=== PATIENT | female | born 1960 | race Caucasian/White ===

== ENCOUNTER 2017-08-05 11:47 | Emergency (ER) | payer BC ==
[2017-08-05 12:09] VITALS: TEMP 99.4
[2017-08-05 12:44] LABS: Appearance,Urine Cloudy (Clear); Bacteria,Urine Many /hpf; Bilirubin,Urine Negative (Negative); Glucose,Urine (UA) Negative (Negative); Ketones,Urine Negative (Negative); Leukocyte Esterase,Urine Negative (Negative); Mucus,Urine Rare /hpf; Nitrite,Urine Negative (Negative); Particle Count 6073; Protein,Urine Trace (Negative); RBC,Urine 108 /hpf (0-5); Specific Gravity,Urine 1.013 (1.001-1.035); Squamous Epithelial Cell,Urine 2 /hpf (0-4); UA Billing (MACRO vs. MICRO) MICRO; Urobilinogen,Urine <2.0 mg/dL (<2.0); WBC,Urine 5 /hpf (0-5)
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
[2017-08-05 14:56] LABS: Basophils # (A) 0.1 k/uL (0-0.2); Basophils % (A) 1 %; CH 33.7; CHCM 36.9; Eosinophils # (A) 0.3 k/uL (0-0.7); Eosinophils % (A) 4 %; HCT 43.1 % (34.0-46.0); HDW 2.95; HGB 15.3 gm/dL (11.4-16.0); Luc # (Auto) 0.07; Luc % (Auto) 1; Lymphocytes # (A) 2.6 k/uL (1.0-4.8); Lymphocytes % (A) 29 %; MCH 32.5 pg (25.0-35.0); MCHC 35.5 g/dL (31.0-37.0); MCV 91.7 fL (80.0-100.0); Mean Platelet Volume 6.5; Monocytes # (A) 0.5 k/uL (0-1.0); Monocytes % (A) 5 %; Neutrophils # (A) 5.3 k/uL (1.3-7.7); Neutrophils % (A) 60 %; RDW 12.4 % (11.5-15.5); WBC 8.8 k/uL (3.8-10.6); WBC (Perox) 8.55
[2017-08-05 15:06] LABS: ALT 77 U/L (9-52); AST 86 U/L (14-36); Alkaline Phosphatase 80 U/L (38-126); Anion Gap 11 mmol/L; Blood Urea Nitrogen 11 mg/dL (7-17); Calcium 9.4 mg/dL (8.4-10.2); Carbon Dioxide 24 mmol/L (22-30); Chloride 104 mmol/L (98-107); Glucose 201 mg/dL (74-99); Non-African American GFR(MDRD) >60 (>60 ml/min/1.73 sqM); Potassium 4.1 mmol/L (3.5-5.1); Sodium 139 mmol/L (137-145); Total Bilirubin 0.8 mg/dL (0.2-1.3); Total Protein 7.3 g/dL (6.3-8.2)
--- NOTE | 2017-08-05 15:20 | XR ---
EXAMINATION TYPE: XR abdomen 2V DATE OF EXAM: 08/05/2017 3:06 PM COMPARISON: None CLINICAL HISTORY: Left flank pain with hematuria. TECHNIQUE: Single supine KUB image of the abdomen is obtained. COMPARISON: None. FINDINGS: No definite free intraperitoneal air is identified. Nonspecific bowel gas pattern is identi fied. There is a moderate amount stool noted in the colon. There is no evidence of impaction or obstr uction. There is a lamellated gallstone overlying the expected location of the gallbladder. Osseous s tructures appear unremarkable. IMPRESSION: Cholelithiasis.
[2017-08-05 16:06] VITALS: RESP 16
--- NOTE | 2017-08-05 16:12 | CT ---
EXAMINATION TYPE: CT abdomen pelvis wo con DATE OF EXAM: 08/05/2017 COMPARISON: NONE HISTORY: Gross hematuria, back pain, worse on left. CT DLP: 1151.9 mGycm Automated exposure control for dose reduction was used. TECHNIQUE: Helical acquisition of images was performed from the lung bases through the pelvis. FINDINGS: LUNG BASES: No significant abnormality is appreciated. LIVER/GB: The liver is diffusely hypodense most consistent with hepatic steatosis. There is a lamella enrique gallstone noted in the gallbladder which is collapsed. PANCREAS: No significant abnormality is seen. SPLEEN: No significant abnormality is seen. ADRENALS: No significant abnormality is seen. KIDNEYS: No hydronephrosis is identified. There is no evidence of nephrolithiasis identified. On this noncontrast examination the appearance of the kidneys is unremarkable. FREE AIR: No free air is visualized RETROPERITONEAL ADENOPATHY: None visualized REPRODUCTIVE ORGANS: No significant abnormality is seen. No definite uterus is identified although an atrophic uterus may be present. URINARY BLADDER: No significant abnormality is seen. PELVIC ADENOPATHY: None visualized. OSSEOUS STRUCTURES: No significant abnormality is seen. BOWEL: No significant abnormality is seen. The appendix is visualized, and is normal. IMPRESSION: 1. NO EVIDENCE OF NEPHROLITHIASIS. 2. CHOLELITHIASIS. 3. HYPODENSE LIVER MOST LIKELY DUE TO HEPATIC STEATOSIS.
[2017-08-05] MEDS ORDERED: LEVOFLOXACIN 500 MG TAB PO STA (17:03)
[2017-08-05 17:47] VITALS: BP 138/91; PULSE 80
== END 2017-08-05 17:55 | disposition home or self-care (01) ==
LOC: EC 11:47
DX: N39.0 Urinary tract infection, site not specified (principal); Z90.710 Acquired absence of both cervix and uterus; Z87.891 Personal history of nicotine dependence; Z88.5 Allergy status to narcotic agent
CPT/HCPCS: 36415; 74020; 74176; 80053; 81001; 85025; 87086; 99284

== ENCOUNTER → 2017-08-20 | Outpatient (CLI) | payer BC ==
--- NOTE | 2017-08-21 08:24 | CT ---
EXAMINATION TYPE: CT urogram wo/w con DATE OF EXAM: 08/20/2017 HISTORY: Patient complains of gross hematuria and urinary urgency and frequency. CT DLP: 4632mGycm Automated Exposure Control for Dose Reduction was Utilized. CONTRAST: CT scan of the abdomen and pelvis is performed without and with IV Contrast, patient injected with 10 0 mL of Omnipaque 300. COMPARISON: None. FINDINGS: LUNG BASES: No significant abnormality is appreciated. LIVER/GB: The liver is diffusely hypoattenuated compatible with at least moderate hepatic steatosis a s this measures an average Hounsfield unit of 17.8. This limits evaluation for underlying hepatic mas ses. No biliary ductal dilatation. A possible peripherally enhancing ill-defined 1.0 cm hepatic lesio n versus pseudolesion is seen on series 6 image 23, sagittal series 5 image 108, and coronal series 4 image 45 megaly that is rounded in morphology and could relate to true hepatic lesion, focal fatty s paring, or arterial portal shunt. This is incompletely characterized. Additionally there is mild foca l fatty sparing around the gallbladder fossa. Large lamellated gallstone is seen within the gallbladder neck measuring 2.3 cm. Common bile duct is not enlarged measuring 6 mm and there is no right upper quadrant fat stranding or pericholecystic flu id. PANCREAS: Pancreas enhances homogeneously without ductal dilatation. SPLEEN: No significant abnormality is seen. Spleen is within normal limits of size measuring 11.8 cm in craniocaudal dimension. ADRENALS: No significant abnormality is seen. KIDNEYS: Emanating from the lateral posterior aspect of the right superior pole there is a 1.3 cm cys t measuring fluid attenuation on all sequences. Additional smaller nonenhancing approximately [address] is present of the lateral cortex of the superior pole of the right kidney. The kidneys enhance and excrete otherwise symmetrically with no blunting of the calyces, hydronephros is, uroepithelial thickening, or ureter deviation in course. Urinary bladder fills dependently partia lly without focal urinary bladder wall thickening. BOWEL: Duodenal diverticulum projects posterior to the uncinate process containing inspissated debris and air without wall thickening. PROSTATE GLAND: Prostate gland is enlarged measuring 5.9 cm. LYMPH NODES: No greater than 1cm abdominal or pelvic lymph nodes are appreciated. OSSEOUS STRUCTURES: No suspicious abnormality. Mild multilevel degenerative changes of the thoracolum bar spine are present. OTHER: Small fat filled periumbilical hernia with a 9 mm neck is superimposed upon mild diastases rec ti. Abdominal aorta is of normal course and caliber with minimal calcific atheromatous changes. IMPRESSION: 1. Right renal cysts. No uroepithelial thickening, ureteral deviation, hydronephrosis, calyceal blunt ing, or urinary bladder focal thickening. Direct visualization of the urinary bladder could be perfor med if there is persistent gross hematuria. 2. At least moderate diffuse hepatic steatosis with areas of focal fatty sparing and left hepatic lob e 1.0 cm lesion versus pseudolesion secondary to hepatic steatosis. Dynamic enhanced MRI abdomen coul d be performed for further evaluation. 3. Cholelithiasis. 4. Incidental duodenal diverticulum containing inspissated debris without wall thickening or surround ing fat stranding. 5. Heterogenous and enlarged prostate gland.
== END | disposition home or self-care (01) ==
LOC: RADCTMAIN 13:47
PROVIDERS: ATTEND Urology
DX: N28.1 Cyst of kidney, acquired (principal); K76.0 Fatty (change of) liver, not elsewhere classified; K80.20 Calculus of gallbladder without cholecystitis without obstruction; K57.90 Diverticulosis of intestine, part unspecified, without perforation or abscess without bleeding; Z88.5 Allergy status to narcotic agent
CPT/HCPCS: 74178; 74400; Q9967

== ENCOUNTER 2017-09-19 11:07 | Day surgery (SDC) | payer BC ==
[2017-09-17 14:26] VITALS: BMI 33.5
[~2017-09-19 11:07] MED LIST: DEXAMETHASONE SOD PHOSPHATE 10 MG/ML 1 ML VIAL IV ONE; HEPARIN SODIUM,PORCINE 5,000 UNIT/ML 1 ML VIAL SQ ONE; MIDAZOLAM 2 MG/2 ML VIAL IV PRN; ONDANSETRON 4 MG/2 ML VIAL IVP ONE; ceFAZolin IN SWFI 2 GM/20 ML SYRINGE IVP ONE
[2017-09-19 11:58] LABS: Glucose,Whole Blood 88 mg/dL (75-99)
[2017-09-19] MEDS: LACTATED RINGERS 1,000 ML IV SCH ×2 (12:00→12:11)
[2017-09-19] MEDS ORDERED: LIDOCAINE 1% 20 ML VIAL (10MG/ML) FOR IV START INTRADERMA ONE (12:01)
[2017-09-19] MEDS ORDERED: LIDOCAINE 1% INJ 10MG/ML (20 ML MDV) ONE (12:11)
[2017-09-19] MEDS ORDERED: MIDAZOLAM 2 MG/2 ML VIAL ONE (12:11)
[2017-09-19] MEDS ORDERED: SUCCINYLCHOLINE CHLORIDE 100 MG/5 ML SYR IV ONE (12:11)
[2017-09-19] MEDS ORDERED: ROCURONIUM BROMIDE 10 MG/ML 10 ML VIAL IV ONE (12:11)
[2017-09-19] MEDS ORDERED: GLYCOPYRROLATE 0.2 MG/ML 2 ML VIAL ONE (12:11)
[2017-09-19] MEDS ORDERED: fentaNYL (PF) 50 MCG/ML 2 ML AMP ONE (12:11)
[2017-09-19] MEDS ORDERED: NEOSTIGMINE 1 MG/ML 10 ML VIAL ONE (12:11)
[2017-09-19] MEDS ORDERED: PROPOFOL 10 MG/ML 20 ML VIAL IV ONE (12:11)
[2017-09-19] MEDS ORDERED: BUPIVACAINE (PF) 0.25% 30 ML VIAL SQ ONE (12:26)
[2017-09-19 13:30] VITALS: TEMP 97
[2017-09-19 13:32] VITALS: RESP 16
[2017-09-19] MEDS: HYDROmorphone 0.5 MG/0.5 ML SYRINGE IVP PRN ×2 (13:53→13:58)
[2017-09-19] MEDS ORDERED: LACTATED RINGERS 1,000 ML IV ONE (14:16)
[2017-09-19] MEDS ORDERED: HYDROcodone/APAP 5-325MG 1 EACH TAB PO ONE (14:51)
[2017-09-19 15:38] VITALS: BP 148/84; PULSE 84
--- NOTE | 2017-09-26 09:33 | P.OP ---
Date of Procedure: 09/19/17 Preoperative Diagnosis: Symptomatic cholelithiasis Postoperative Diagnosis: Same Procedure(s) Performed: Laparoscopic cholecystectomy Anesthesia: DARCI Surgeon: Shira Bernard Pathology: other Condition: stable Disposition: PACU Indications for Procedure: 57 years old female presents with symptomatic cholelithiasis. Informed consent obtained and she elected to undergo colonoscopy cholecystectomy possible open. Description of Procedure: The patient was brought to the operating room and placed in supine position with both arms out. General anesthesia with endotracheal intubation was performed as per anesthesia team. Chlorhexidine was used to prep the abdomen followed by application of sterile drapes. A timeout was performed to verify correct patient and correct procedure. Patient was confirmed to receive perioperative IV antibiotics , heparin 5000 units subcutaneous injection and bilateral SCDs were placed. A 5 mm skin incision was made below the left costal margin at the anterior axillary line. A Veress needle was inserted and pneumoperitoneum was established to a pressure of 15 mmHg. A 5 mm Optiview trocar was loaded on a 5 mm 30 laparoscope and the peritoneal cavity was entered under direct vision using the Optiview technique. Additional 5 mm trocar was placed in the supraumbilical location and two 5 mm trocars along the right subcostal margin. The left 5 mm trocar was upsized to 10mm. The patient was placed in reverse Trendelenburg with right side up. The fundus of the gallbladder was grasped with an atraumatic grasper and was retracted over the dome of the liver. The infundibulum was grasped with an atraumatic grasper and retracted towards the pelvis to expose the Calot's triangle. Lateral and medial peritoneal attachment of the gallbladder bladder was dissected. Circumferential dissection was carried out around the cystic artery and the cystic duct to obtain adequate length for clip application. All the surrounding fibrofatty tissue were removed. Critical view was obtained with cystic duct and cystic artery as the only two structures entering the gallbladder. Two clips were applied on the patient's side and one on the specimen side on the cystic duct first followed by the cystic artery. Endoshears were used to divide the cystic duct and the cystic artery. The gallbladder was taken off the liver bed using a L-hook. It was placed in an endocatch specimen bag and removed through the 10mm port. The gallbladder was passed off as a specimen. The abdominal cavity was inspected. The clips on the cystic duct and cystic artery stump were intact and no bleeding noted from the liver bed. All the trocar sites were examined and no evidence of bleeding. The 10mm port site was closed with two transfascial sutures of 0 Vicryl using a Gino Shae device. The pneumoperitoneum was evacuated and all the trocars were removed. Local anesthetic was infiltrated along the trocar sites and incisions were closed using 4-0 Monocryl followed by application of Dermabond skin glue. The sponge, instrument and needle count were correct x2. Patient was extubated and taken to post anesthesia care unit in stable condition.
== END 2017-09-19 16:11 | disposition home or self-care (01) ==
LOC: OR 11:07
PROVIDERS: ATTEND Surgery
DX: K80.12 Calculus of gallbladder with acute and chronic cholecystitis without obstruction (principal); E66.9 Obesity, unspecified; Z68.35 Body mass index [BMI] 35.0-35.9, adult; Z88.5 Allergy status to narcotic agent; Z87.891 Personal history of nicotine dependence; Z90.710 Acquired absence of both cervix and uterus
CPT/HCPCS: 47562; 88304; J2250; J1644; J1100; J2710; J0690; J2405; J2001; J3010; J0330; J2704; J1170

== ENCOUNTER → 2021-03-02 | Outpatient (CLI) | payer BC ==
[2021-03-03 00:07] LABS: Estradiol 43.2 pg/mL
== END | disposition home or self-care (01) ==
LOC: LABWHC1 12:30
PROVIDERS: ATTEND Obstetrics & Gynecology
DX: N95.1 Menopausal and female climacteric states (principal); Z79.890 Hormone replacement therapy
CPT/HCPCS: 36415; 82670; 84144; 84403; 84443

== ENCOUNTER → 2024-03-12 | Outpatient (CLI) | payer BC ==
--- NOTE | 2024-03-13 07:41 | XR ---
EXAMINATION TYPE: XR shoulder complete RT DATE OF EXAM: 03/12/2024 COMPARISON: NONE HISTORY: Pain TECHNIQUE: Three views are submitted. FINDINGS: The osseous structures are intact. There is no acute fracture or dislocation. Moderate to severe hyp ertrophic arthropathy seen. IMPRESSION: 1. Moderate to severe AC joint hypertrophic arthropathy.
== END | disposition home or self-care (01) ==
LOC: RADXRMAIN 16:23
PROVIDERS: ATTEND Physician Assistant
DX: M19.011 Primary osteoarthritis, right shoulder (principal)

== ENCOUNTER → 2024-06-23 | Outpatient (CLI) | payer BC ==
--- NOTE | 2024-06-24 14:35 | MR ---
EXAMINATION TYPE: MR shoulder RT wo con DATE OF EXAM: 06/23/2024 1:30 PM COMPARISON: NONE HISTORY: Rt shoulder pain TECHNIQUE: Multiplanar multispin echo imaging of the right shoulder was performed. FINDINGS: Rotator cuff : There is a full thickness partial tear of the supraspinatus tendon without evidence fo r retraction. Abnormal signal seen within the critical zone. Remaining constituents of the rotator cu ff are intact. Bursa: No bursal effusion or thickening is seen. Musculature: There is no muscular tear, contusion, or atrophy. Acromioclavicular joint : Subacromial spurring resulting in moderate subacromial impingement. Moderat e AC joint arthropathy. Osseous structures : There are no fractures or regions of abnormal bone marrow signal intensity. Long biceps tendon : The biceps tendon is normally situated within the bicipital groove. No complete or partial biceps tendon tear is present. Glenohumeral Joint fluid : There is no glenohumeral joint effusion. Cartilage and Bone : No focal hyaline cartilage defects are noted. No Hill-Sachs, reverse Hill-Sachs, or bony Bankart lesions are seen. Labrum : There are no SLAP or soft tissue Bankart lesions. No paralabral cysts are seen. OTHER FINDINGS : none IMPRESSION: 1. There is a full thickness partial tear of the supraspinatus tendon without evidence for retraction . Abnormal signal seen within the critical zone.
== END | disposition home or self-care (01) ==
LOC: RADMRIMAIN 12:43
PROVIDERS: ATTEND Family Medicine
DX: M89.411 Other hypertrophic osteoarthropathy, right shoulder (principal); M75.121 Complete rotator cuff tear or rupture of right shoulder, not specified as traumatic

== ENCOUNTER → 2024-07-21 | Outpatient (CLI) | payer BC ==
[2024-07-21 15:44] LABS: Anion Gap 11.9 mmol/L (4.00-12.00); Carbon Dioxide 23.1 mmol/L (21.6-31.8); Potassium 4.4 mmol/L (3.5-5.5)
[2024-07-21 16:12] LABS: Basophils # (A) 0.06 X 10*3/uL (0.00-0.10); Basophils % (A) 0.8 %; Eosinophils # (A) 0.15 X 10*3/uL (0.04-0.35); Eosinophils % (A) 1.9 %; HCT 42.4 % (37.2-46.3); HGB 15.1 g/dL (12.0-15.0); Lymphocytes # (A) 2.48 X 10*3/uL (0.90-5.00); Lymphocytes % (A) 31.2 %; MCH 32.3 pg (27.0-32.0); MCHC 35.6 g/dL (32.0-37.0); MCV 90.8 FL (80.0-97.0); Mean Platelet Volume 9.5 FL (9.5-12.2); Monocytes # (A) 0.71 X 10*3/uL (0.20-1.00); Monocytes % (A) 8.9 %; NRBC Per 100 WBC 0 X 10*3/uL (0.00-0.01); Neutrophils # (A) 4.53 X 10*3/uL (1.80-7.70); Neutrophils % (A) 56.9 %; Platelet Count 243 X 10*3/uL (140-440); RBC 4.67 X 10*6/uL (4.10-5.20); RDW 12.5 % (11.5-14.5); WBC 7.95 X 10*3/uL (4.50-10.00)
== END | disposition home or self-care (01) ==
LOC: LABPAT 12:13
PROVIDERS: ATTEND Orthopaedic Surgery
DX: Z01.812 Encounter for preprocedural laboratory examination (principal); M75.41 Impingement syndrome of right shoulder
CPT/HCPCS: 80051; 85025

== ENCOUNTER 2024-07-31 07:53 | Day surgery (SDC) | payer BC ==
[2024-07-28 10:07] VITALS: BMI 32.5
--- NOTE | 2024-07-31 00:28 | HP ---
HISTORY AND PHYSICAL DATE OF SURGERY: 07/31/2024. HISTORY OF PRESENT ILLNESS: Lizzy Cuellar is a 64-year-old patient, seen with progressive right shoulder pain. We discussed options regarding treatment. She elected to proceed with right shoulder arthroscopy. Consent was obtained. PAST MEDICAL HISTORY: [id number] diabetes. PAST SURGICAL HISTORY: section, cholecystectomy. DAILY MEDICATIONS: 1. Celebrex. 2. Ozempic. ALLERGIES: None. SOCIAL HISTORY: She denies tobacco use. PHYSICAL EVALUATION OF THE RIGHT SHOULDER: Flexion is 150 degrees, abduction is 130 degrees. External rotation is 40 degrees with pain and weakness. Tenderness along the anterolateral acromion and bicipital groove along with rotator cuff and proximal biceps tendon. Impingement is positive at 70 degrees. Cross-body adduction sign is positive. Drop-arm sign is positive. Distal neurovascular exam is intact. IMAGING STUDIES: Radiographs of right shoulder, type 2 acromion, severe acromioclavicular joint osteoarthritis. MRI of right shoulder, rotator cuff tear, impingement, acromioclavicular joint osteoarthritis. IMPRESSION: 1. Right shoulder impingement with rotator cuff tear. 2. Right shoulder acromioclavicular joint osteoarthritis. 3. Right shoulder bicipital tendinitis. 4. [id number] diabetes. PLAN: Right shoulder arthroscopy with subacromial decompression, arthroscopic rotator cuff repair, Gabe, biceps tenodesis, and debridement. MMODL / IJN: [id number] /
[~2024-07-31 07:53] MED LIST changes: -DEXAMETHASONE SOD PHOSPHATE 10 MG/ML 1 ML VIAL IV ONE; -HEPARIN SODIUM,PORCINE 5,000 UNIT/ML 1 ML VIAL SQ ONE; +HYDROmorphone 0.5 MG/0.5 ML SYRINGE IVP PRN; -MIDAZOLAM 2 MG/2 ML VIAL IV PRN; -ONDANSETRON 4 MG/2 ML VIAL IVP ONE; -ceFAZolin IN SWFI 2 GM/20 ML SYRINGE IVP ONE
[2024-07-31] MEDS: IV FLUID CONTINUATION 1,000 ML IV ONE (08:14)
[2024-07-31 08:25] LABS: Glucose,Whole Blood 111 mg/dL (70-110)
[2024-07-31] MEDS: DEXAMETHASONE SOD PHOSPHATE 4 MG/ML 1 ML VIAL IV ONE (08:32)
[2024-07-31] MEDS: ONDANSETRON 4 MG/2 ML VIAL IVP ONE (08:32)
[2024-07-31] MEDS: LACTATED RINGERS 1,000 ML IV SCH (08:32)
[2024-07-31] MEDS: MIDAZOLAM 2 MG/2 ML VIAL IV ONE (08:58)
[2024-07-31] MEDS ORDERED: fentaNYL (PF) 50 MCG/ML 2 ML AMP ONE (09:01)
[2024-07-31] MEDS ORDERED: SUCCINYLCHOLINE CHLORIDE 200 MG/10 ML VIAL IV ONE (09:01)
[2024-07-31] MEDS ORDERED: LIDOCAINE 4% LTA KIT (4 ML) TOPICAL ONE (09:01)
[2024-07-31] MEDS ORDERED: PROPOFOL 10 MG/ML 20 ML VIAL IV ONE (09:01)
[2024-07-31] MEDS ORDERED: DEXAMETHASONE SOD PHOSPHATE 4 MG/ML 1 ML VIAL ONE (09:01)
[2024-07-31] MEDS ORDERED: ROPIVACAINE 5 MG/ML 30 ML VIAL ONE (09:01)
[2024-07-31] MEDS ORDERED: LIDOCAINE 1% INJ 10MG/ML (20 ML MDV) ONE (09:01)
[2024-07-31] MEDS ORDERED: KETOROLAC 15 MG/ML 1 ML VIAL ONE (09:01)
[2024-07-31 11:00] VITALS: TEMP 97.4
--- NOTE | 2024-07-31 11:04 | P.OP ---
Date of Procedure: 07/31/24 Preoperative Diagnosis: Right shoulder impingement Postoperative Diagnosis: 1. Right shoulder rotator cuff tear 2. Right shoulder impingement 3. Right shoulder partial long head biceps tendon tear 4. Right shoulder acromioclavicular joint osteoarthritis 5. Right shoulder superficial labral tear Procedure(s) Performed: 1. Right shoulder arthroscopic rotator cuff repair 2. Right shoulder arthroscopic subacromial decompression 3. Right shoulder arthroscopic biceps tenodesis 4. Right shoulder arthroscopic Gabe procedure 5. Right shoulder arthroscopic debridement labral tear Implants: 5Arthrex 4.75 swivel lock anchors Anesthesia: GETA, regional (Interscalene block) Surgeon: Ellis Lundy Pegger Dobby Looms #1: Srinath Dietrich Estimated Blood Loss (ml): 10 Pathology: none sent Condition: stable Disposition: PACU Indications for Procedure: 64-year-old patient seen with progressive right shoulder pain. After having treatment options discussed, she elected to proceed with arthroscopy. Operative Findings: See description of procedure Description of Procedure: Patient underwent an interscalene block by department of anesthesia. The patient was then taken to the operative suite. The patient underwent a general anesthetic by the department of anesthesia. The patient was placed into a lateral position and secured. There was appropriate padding of the bony prominence. Right shoulder was then prepped and draped in normal sterile orthopedic fashion. We placed the extremity in 10 pounds of longitudinal traction. A posterior incision was now made for a posterior working portal site. The trocar and cannula were inserted into the glenohumeral joint. Arthroscopy was initiated. Spinal needle was now inserted anteriorly, to ascertain the anterior working portal site. An incision was now made in that area, a trocar was inserted followed by a probe. There was partial tearing and hyperemia long head biceps tendon. There was superficial tearing of the superior labrum. There was no significant chondromalacia present. I debrided the superficial labral tear with a motorized shaver. I decided to proceed with an arthroscopic biceps tenodesis. I placed a cannula through the anterior portal site. I passed a loop and tack type stitch to the biceps tendon and release it from the superior labral anchor. With the assistance of Blayne HOWELL I punched a hole at the interval area for insertion of an anchor. The suture line was passed through the eyelet of an Arthrex 4.75 swivel lock anchor. I placed the eyelet into our prepunched hole, held in position while Blayne HOWELL tensioned the suture and deployed the anchor with good fixation noted. The residual suture limb was clipped. There was a stable appearing biceps tenodesis. Instruments were now removed from glenohumeral joint. Utilizing the posterior working portal site, the trocar and cannula were inserted into the subacromial space. Arthroscopy initiated. I made an incision 2 fingerbreadths lateral to the acromion. I introduced my trocar followed by my ArthroCare ablator. I now began ablating thick subacromial bursal tissue, which exposed the undersurface of the anterior acromion. There was diminished subacromial space. There was a very prominent anterior acromion. A motorized bur was introduced and a subacromial decompression was performed. I also excised some osteophytes off the inferior aspect of the distal clavicle. The AC joint was visualized and noted to be fairly arthritic. The motorized bur was introduced in the anterior portal site and a Gabe procedure was performed without difficulty removing 8 mm of bone off the distal clavicle, decompressing the AC joint nicely. I turned my attention to the rotator cuff. There was a 2.53 cm rotator cuff tear. I debrided the margins getting down to stable tendon tissue. I passed a converging suture centrally where there was a cleavage type tear. I introduced my motorized bur and abraded the footprint area, getting some petechial bleeding. I now made an accessory portal site off the lateral aspect of the acromion. I punched to holes medial for medial row fixation with the assistance of Blayne HOWELL carefully tapping the punch with a mallet as I held the punch and the camera. I now introduced both anchors into the pre-punched holes and Blayne HOWELL tapped them with the mallet as I held anchors and the camera. Blayne HOWELL now screwed the anchors in place a while I held the anchor guide and camera. All 8 limbs of suture were now passed through good bites of rotator cuff tendon. I now punched 2 holes for lateral row fixation again I held the punch and camera while Blayne HOWELL used a mallet to tap in the punch. We now passed sutures through both anchors and individually I introduced the anchors into the pre-punched holes I held the anchor guide in position with one hand holding the camera with the other hand while Blayne HOWELL tensioned the sutures and screwed in the anchors one at a time. All residual suture limbs were now clipped. We had good compression of the tendon along the entire footprint. Instruments now removed from the portal sites. All portal sites were approximated with nylon suture. Sterile dressings were applied followed by a shoulder immobilizer. Srinath HOWELL assisted in this complex case. The patient was awakened, transferred to a bed, and taken to recovery in stable condition.
[2024-07-31 13:08] VITALS: RESP 14
[2024-07-31 13:12] VITALS: BP 123/76; PULSE 75
--- NOTE | 2024-08-01 10:41 | P.ANPRN ---
Procedure Note - Anesthesia - Nerve Block Performed Right Interscalene Single Time Out Performed: Yes Date of Procedure: 07/31/24 Procedure Start Time: 08:58 Procedure Stop Time: 09:01 Location of Patient: PreOp Indication: Acute Post-Operative Pain, Requested by Surgeon Sedation Type: Sedate with meaningful contact maintained Preparation: Sterile Prep Position: Supine Needle Types: Pajunk Needle Gauge: 21 Ultrasound used to visualize needle placement: Yes Ultrasound used to observe medication spread: Yes Blood Aspirated: No Pain Paresthesia on Injection Noted: No Resistance on Injection: Normal Image Stored and Saved: Yes Events: Uneventful and Well Tolerated (Ropivacaine 0.5% 20 cc plus dexamethasone 4 mg)
== END 2024-07-31 12:45 | disposition home or self-care (01) ==
LOC: OR 07:53
PROVIDERS: ATTEND Orthopaedic Surgery
CPT/HCPCS: 64415